=== PATIENT | male | born 1995 | race Caucasian/White ===

== ENCOUNTER 2017-05-02 22:26 | Emergency (ER) | payer SELFPAY ==
[~2017-05-02] VITALS: Ht 193 cm; Wt 90.7 kg
--- OUTSIDE RECORDS SUMMARY | 2017-05-02 22:32 | XMS REPORT | Clinical Summary ---
Author Author [facility] Organization [facility] Address Unknown Phone Unavailable Care Team Providers Care Transcription Manager Name Role Phone PCP Unavailable Source Comments Some departments are not documenting in the electronic medical record. If you do not see the information that you expected, contact Release of Information in the Health Information Management department at [phone] for further assistance in locating additional records.[facility] Allergies No Known Allergies Current Medications No known medications Active Problems Problem Noted Date Routine general medical examination at a health care facility 04/04/2015 Family history of bicuspid aortic valve 03/07/2015 Family History Medical History Relation Name Comments High Cholesterol Mother Relation Name Status Comments Father Alive Mother Alive Bicuspid Valve Social History Tobacco Use Types Packs/Day Years Used Date Current Some Day Smoker Smokeless Tobacco: Never Used Alcohol Use Drinks/Week oz/Week Comments Yes Sex Assigned at Date Recorded Not on file Last Filed Vital Signs Vital Sign Reading Time Taken Blood Pressure 110/74 04/02/2015 8:48 AM CDT Pulse 58 04/02/2015 8:38 AM CDT Temperature - - Respiratory Rate - - Oxygen Saturation - - Inhaled Oxygen - - Concentration Weight 79.5 kg (175 lb 3.2 oz) 04/02/2015 8:38 AM CDT Height 190.5 cm (6' 3") 04/02/2015 8:38 AM CDT Body Mass Index 21.9 04/02/2015 8:38 AM CDT Plan of Treatment Health Maintenance Due Date Last Done Comments PHYSICAL (COMPREHENSIVE) 2001 EXAM PERTUSSIS VACCINE 2005 TETANUS VACCINE 2011 INFLUENZA VACCINE 05/09/2017 HPV VACCINES Aged Out No longer eligible based on patient's age to complete this topic Results Not on filefrom Last 3 Months
[2017-05-02] MEDS ORDERED: LIDOCAINE 1% INJ 20 ML (XYLOCAINE) VIAL INJ STA (22:50)
--- NOTE | 2017-05-02 23:00 | ED Head Injury ---
General Chief Complaint: Laceration Stated Complaint: EYE INJ DOING STUNTS Source: patient Exam Limitations: no limitations (NORTH CERVANTES MD) History of Present Illness Time seen by provider: 22:43 Initial Comments Here with report of injury to the left brow during a cheerleading stunt. Apparently he was elbowed in the face. No loss of consciousness. No complaint of actual eye injury. Noted bleeding to the area in the eyebrow line on the lateral aspect on the left eye. Tetanus is up-to-date. Denies other injury. Occurred: this evening Severity: moderate Location: other (left brow) Method of Injury: direct blow Loss of Consciousness: no loss of consciousness Associated Systoms: Denies Symptoms (NORTH CERVANTES MD) Allergies and Home Medications Allergies Coded Allergies: No Known Drug Allergies (Unverified , 06/10/13) Home Medications No Active Prescriptions or Reported Meds Constitutional: see HPI Eyes: Denies Blurred Vision, Denies Decreased Acuity, Pain (left brow) Ears, Nose, Mouth, Throat: no symptoms reported Respiratory: no symptoms reported Cardiovascular: no symptoms reported Gastrointestinal: no symptoms reported Skin: see HPI Psychiatric/Neurological: No Symptoms Reported (NORTH CERVANTES MD) Past Ujqtpuv-Vrpgva-Bdjalb Hx Patient Social History Alcohol Use: Occasionally Uses Alcohol Beverage of Choice: Beer Recreational Drug Use: No Smoking Status: Light Tobacco Smoker Type Used: Cigarettes Recent Foreign Travel: No Contact w/Someone Who Travel: No Physical Abuse: No Sexual Abuse: No (NORTH CERVANTES MD) Immunizations Up To Date Tetanus Booster (TDap): Less than 5yrs Date of Influenza Vaccine: May 08, 2013 (NORTH CERVANTES MD) Surgeries History of Surgeries: No (NORTH CERVANTES MD) Respiratory History of Respiratory Disorde: No (NORTH CERVANTES MD) Cardiovascular History of Cardiac Disorders: No (NORTH CERVANTES MD) Neurological History of Neurological Disord: No (NORTH CERVANTES MD) Reproductive System Hx Reproductive Disorders: No Sexually Transmitted Disease: No (NORTH CERVANTES MD) Genitourinary History of Genitourinary Disor: No (NORTH CERVANTES MD) Gastrointestinal History of Gastrointestinal Di: No (NORTH CERVANTES MD) Musculoskeletal History of Musculoskeletal Dis: No (NORTH CERVANTES MD) Endocrine History of Endocrine Disorders: No (NORTH CERVANTES MD) HEENT History of HEENT Disorders: No (NORTH CERVANTES MD) Cancer History of Cancer: No (NORTH CERVANTES MD) Psychosocial History of Psychiatric Problem: No Suicide Risk Score: 0 (NORTH CERVANTES MD) Integumentary History of Skin or Integumenta: No (NORTH CERVANTES MD) Blood Transfusions History of Blood Disorders: No (NORTH CERVANTES MD) Reviewed Nursing Assessment Reviewed/Agree w Nursing PMH: Yes (NORTH CERVANTES MD) Family Medical History Significant Family History: No Pertinent Family Hx (NORTH CERVANTES MD) Physical Exam Vital Signs Capillary Refill : Less Than 3 Seconds (NORTH CERVANTES MD) General Appearance: WD/WN, no apparent distress HEENT: PERRL/EOMI, pharynx normal Neck: full range of motion, supple Cardiovascular: regular rate, rhythm, no murmur Respiratory: lungs clear, normal breath sounds Psychiatric: alert, oriented x 3 Skin: warm/dry, other (1.5 cm laceration to the left brow) (NORTH CERVANTES MD) [place] Coma Score Best Eye Response: (4) Open Spontaneously Best Verbal Response: (5) Oriented Best Motor Response: (6) Obeys Commands (NORTH CERVANTES MD) Laceration Repair : Wound Location: Eye (left eyebrow) Wound Length (cm): 1.5 Wound's Depth, Shape: superficial (partial thickness laceration), irregular Betadine Prep?: No (wound scrubbed with chlorhexidine and sterile saline) Other Closure Supply: Wound Adhesive (HAL PACHECO) Progress/Results/Core Measures Progress Note : Progress Note Seen and evaluated. Laceration repair. Discharge home with return precautions. Patient verbalize understanding instructions and agreement with plan. (NORTH CERVANTES MD) Departure Impression Impression: Primary Impression: Laceration of face Qualified Codes: S01.81XA - Laceration without foreign body of other part of head, initial encounter Disposition: 01 HOME, SELF-CARE Condition: Improved Departure-Patient Inst. Decision time for Depature: 23:08 (NORTH CERVANTES MD) Referrals: NO,LOCAL PHYSICIAN (PCP/Family) Primary Care Physician Patient Instructions: Laceration Repair With Stitches (DC) Add. Discharge Instructions: All discharge instructions reviewed with patient and/or family. Voiced understanding. Sutures out in 4-5 days. You may use antibiotic ointment over wound once or twice daily. Return for worse pain, fever, swelling, increasing redness, foul- smelling discharge or other concerns as needed. You may take ibuprofen or Tylenol per package directions for pain. You may use ice packs over affected area as needed to decrease swelling. Scripts No Active Prescriptions or Reported Meds NORTH CERVANTES MD May 02, 2017 23:00 HAL PACHECO May 02, 2017 23:57
[2017-05-03] VITALS: BP 127/81
== END 2017-05-02 23:55 | disposition home or self-care (01) ==
LOC: EDUNIT# 22:26 → ER 22:28
DX: S01.112A Laceration without foreign body of left eyelid and periocular area, initial encounter (principal); F17.210 Nicotine dependence, cigarettes, uncomplicated; W22.09XA Striking against other stationary object, initial encounter; Y93.45 Activity, cheerleading